=== PATIENT | female | born 1995 | race Caucasian/White ===

== ENCOUNTER → 2017-11-20 14:00 | Observation (INO) ==
[2017-11-20 08:17] LABS: Bilirubin,Urine Negative (Negative); Blood,Urine Small (Negative); Clarity,Urine Clear (Clear); Color,Urine Yellow (Yellow); Glucose,Urine (UA) Normal (Normal); Ketones,Urine Negative (Negative); Leukocyte Esterase,Urine Small (Negative); Nitrite,Urine Negative (Negative); PH,Urine >=9.0 pH Units (5.0-8.0); Protein,Urine 30 mg/dL (Neg-Trace); Urobilinogen,Urine Normal (Normal)
[2017-11-20 08:27] LABS: RBC,Urine 0-3 per hpf (0-3); Squamous Epithelial Cell,Urine Few per lpf (None-Few); WBC,Urine 0-3 per hpf (0-3)
[2017-11-20 08:28] LABS: Amphetamine Screen,Urine Negative ng/mL (Cutoff=1000); Bacteria,Urine Few per hpf (None-Few); Barbiturate Screen,Urine Negative ng/mL (Cutoff=200); Benzodiazepines Screen,Urine Negative ng/mL (Cutoff=200); Cannabinoid Screen,Urine Negative ng/mL (Cutoff = 50); Cocaine Screen,Urine Negative ng/mL (Cutoff= 300); Opiate Screen,Urine Negative ng/mL (Cutoff=300); Phencyclidine Screen,Urine Negative ng/mL (Cutoff=25)
--- NOTE | 2017-11-20 09:04 | OB/GYN History & Physical ---
Date of Encounter: 11/20/17 Time of Encounter: 08:59 Assessment and Plan (1) 29 weeks gestation of Current visit: Yes Status: Acute Patient admitted for observation (2) Vaginal discharge during Current visit: Yes Status: Acute vaginosis panel collected Qualifiers: Trimester: third trimester Qualified Code(s): O26.893 - Other specified related conditions, third trimester; N89.8 - Other specified noninflammatory disorders of vagina (3) contractions Current visit: Yes Status: Acute IV bolus CBC Betamethasone Discussed POC and treatment with Dr. Corea History of Present Illness Chief complaint: contractions and vaginal discharge HPI: Ms. Mora is a 22 year old female at 29w1d presents to labor and delivery via squad with complaints of contractions and caramel colored discharge. Patient reports the contractions started around 7pm yesterday. Patient states she went to bed and they continued and woke her up through the night. Patient states when she got up and went to the bathroom she noticed the caramel colored discharge. Patient reports +FM and urinary frequency. Patient denies any complication with current . Past Med Surg Social Fam HX - Past Medical History Source: patient Medical history: asthma, syncope Additional medical history: hypotension, endometriosis Psychiatric history: no psych history - Past Surgical History Additional surgical history: Laprascopy (Jan 2017), T&A - Social History Smoking Status: Never smoker Smokeless Tobacco Status: No Alcohol use: none Drug use: none Occupational status: unemployed Current living situation: Home - Independent Activity Level: Independent ambulation Recent Out of Country Travel Within the Last 8 Weeks: No Exposure or Possible Exposure to Illness During Travel: No - Family History Mother Hx Family Respiratory Disorders: Yes (Asthma, COPD) Hx Family Cancer: Yes (cervical cancer) Obstetrical History - Pregnancies : 1 Para: 0 Term: 0 : 0 Ab's: 0 Livin Medications and Allergies Albuterol Sulfate [Ventolin Hfa] 18 gm IH Q4-6H PRN 07/06/17 [History] Vits #90/Iron Fum/FA [ Formula Tablet] 1 tab PO DAILY 11/20/17 [History] 3 Allergy/AdvReac Type Severity Reaction Status Date / Time codeine Allergy See Verified 07/06/17 21:32 Comments Penicillins Allergy See Verified 07/06/17 21:31 Comments Sulfa (Sulfonamide Allergy See Verified 07/06/17 21:32 Antibiotics) Comments Review of System OB - Constitutional Constitutional ROS IM: no chills, no fever(s), no headache(s) - Cardiovascular Cardiovascular: no chest pain, no palpitations, no rapid heart rate, no syncope - Respiratory Respiratory: no dyspnea - Gastrointestinal Gastrointestinal: no abdominal pain, no constipation, no diarrhea, no heartburn , no vomiting - Genitourinary Genitourinary: genital pruritis (a few days ago), urinary frequency, vaginal discharge (per IUD), no abnormal vaginal bleeding, no difficulty urinating, no dysuria, no flank pain, no hematuria, no vaginal odor Exam - Constitutional Constitutional: well developed, well nourished, no acute distress, average body habitus - HEENT HEENT: Normocephaly, Mucus Membranes Moist - Neck Neck exam: full ROM, supple - Lungs Respiratory exam: CTAB - Cardiovascular Cardiovascular exam: RRR, +S1, +S2 - Abdomen Abdomen: Present: bowel sounds normal, gravid, non tender - Extremities Extremities exam: full ROM, normal inspection Deep Tendon Reflex Grade: 2+ Normal - Cervix Dilation: 1 Effacement: 70 Station: -1 - Uterus Uterus exam: Present: normal size, normal contour - Anus/Rectum Anus/Rectum: Present: normal perianal skin - Comments Comments: Speculum exam: Moderate amount of beige discharge noted. No new active bleeding seen. Vaginosis panel collected. Cervix appears red and irritated. FHR 135 bpm moderate variability +15x15 accels no decels noted. Contractions 3- 4 min apart. Results Abnormal lab results Urine pH >=9.0 pH Units (5.0-8.0) H 11/20/17 08:00 Urine Protein 30 mg/dL (Neg-Trace) H 11/20/17 08:00 Urine Blood Small (Negative) H 11/20/17 08:00 Ur Leukocyte Esterase Small (Negative) H 11/20/17 08:00 Ur Culture Indicated? YES (NO) A 11/20/17 08:00 All other labs normal. - VTE Reasons for not Prescribing Prophylaxis: Treatment not Indicated - Low risk for VTE
[2017-11-20 09:32] LABS: Basophils % 0.2 %; Eosinophils # 0.1 K/mcL (0.0-0.6); Eosinophils % 0.3 %; Hematocrit 39.5 % (35.3-44.9); Hemoglobin 12.9 g/dL (11.5-15.4); Immature Granulocytes % 0.8 % (0-4); Lymphocytes # 1.6 K/mcL (0.6-4.6); Lymphocytes % 8.7 %; Mean Corpuscular HGB Conc 32.7 g/dL (31.6-35.5); Mean Corpuscular Hemoglobin 27.7 pg (28.0-33.3); Mean Corpuscular Volume 84.9 fL (83.0-100.0); Monocytes # 1.2 K/mcL (0.0-1.3); Monocytes % 6.9 %; Neutrophils # 14.9 K/mcL (1.6-8.9); Platelet Count 225 K/mcL (140-400); Red Blood Count 4.65 M/mcL (3.82-4.97); Red Cell Distribution Width 12.7 % (11.5-14.5); Segmented Neutrophils % 83.1 %
[2017-11-20 10:04] LABS: Trichomonas DNA Not Detected (Not Detect)
[2017-11-20 10:05] LABS: Candida DNA Not Detected (Not Detect); Gardnerella DNA Not Detected (Not Detect)
--- NOTE | 2017-11-20 13:41 | Discharge Summary ---
Date of Encounter: 11/20/17 Time of Encounter: 13:41 - Discharge Diagnosis (1) 29 weeks gestation of Priority: Primary Status: Acute Comments: Patient to follow up in office tomorrow for 2nd betamethasone shot Patient reports no pain at this time. Patient given s/s of labor precautions. (2) Vaginal discharge during Priority: Secondary Status: Acute Comments: vaginosis panel negative Qualifiers: Trimester: third trimester Qualified Code(s): O26.893 - Other specified related conditions, third trimester; N89.8 - Other specified noninflammatory disorders of vagina (3) contractions Priority: Secondary Status: Acute Comments: No cervical change - Discharge Medications Home Medications: Albuterol Sulfate [Ventolin Hfa] 18 gm IH Q4-6H PRN 07/06/17 [History] Vits #90/Iron Fum/FA [ Formula Tablet] 1 tab PO DAILY 11/20/17 [History] Allergies/Adverse Reactions: 3 Allergy/AdvReac Type Severity Reaction Status Date / Time codeine Allergy See Verified 07/06/17 21:32 Comments Penicillins Allergy See Verified 07/06/17 21:31 Comments Sulfa (Sulfonamide Allergy See Verified 07/06/17 21:32 Antibiotics) Comments Data Procedures and tests throughout hospitalization: Laboratory Tests 11/20/17 11/20/17 11/20/17 08:00 08:00 08:56 WBC 18.0 H RBC 4.65 Hgb 12.9 Hct 39.5 MCV 84.9 MCH 27.7 L MCHC 32.7 RDW 12.7 Plt Count 225 MPV 9.0 L Immature Gran % 0.8 Seg Neutrophils % 83.1 Lymphocytes % 8.7 Monocytes % 6.9 Eosinophils % 0.3 Basophils % 0.2 Neutrophils # 14.9 H Lymphocytes # 1.6 Monocytes # 1.2 Eosinophils # 0.1 Basophils # 0.0 Urine Color Yellow Urine Clarity Clear Urine pH >=9.0 H Ur Specific [place] 1.020 Urine Protein 30 H Urine Glucose (UA) Normal Urine Ketones Negative Urine Blood Small H Urine Nitrite Negative Urine Bilirubin Negative Urine Urobilinogen Normal Ur Leukocyte Esterase Small H Urine Microscopic RBC 0-3 Urine Microscopic WBC 0-3 Ur Squamous Epith Cells Few Urine Bacteria Few Ur Culture Indicated? YES A Urine Opiates Screen Negative Ur Barbiturates Screen Negative Ur Phencyclidine Scrn Negative Ur Amphetamines Screen Negative U Benzodiazepines Scrn Negative Urine Cocaine Screen Negative U Marijuana (THC) Screen Negative Ur Drug Screen Interp See Below Jalyn species DNA Gardnerella DNA Probe Trichomonas DNA Probe 11/20/17 09:14 WBC RBC Hgb Hct MCV MCH MCHC RDW Plt Count MPV Immature Gran % Seg Neutrophils % Lymphocytes % Monocytes % Eosinophils % Basophils % Neutrophils # Lymphocytes # Monocytes # Eosinophils # Basophils # Urine Color Urine Clarity Urine pH Ur Specific [place] Urine Protein Urine Glucose (UA) Urine Ketones Urine Blood Urine Nitrite Urine Bilirubin Urine Urobilinogen Ur Leukocyte Esterase Urine Microscopic RBC Urine Microscopic WBC Ur Squamous Epith Cells Urine Bacteria Ur Culture Indicated? Urine Opiates Screen Ur Barbiturates Screen Ur Phencyclidine Scrn Ur Amphetamines Screen U Benzodiazepines Scrn Urine Cocaine Screen U Marijuana (THC) Screen Ur Drug Screen Interp Jalyn species DNA Not Detected Gardnerella DNA Probe Not Detected Trichomonas DNA Probe Not Detected Labs on day of discharge: Labs from last 24 hours 11/20/17 11/20/17 11/20/17 09:14 08:56 08:00 WBC 18.0 H RBC 4.65 Hgb 12.9 Hct 39.5 MCV 84.9 MCH 27.7 L MCHC 32.7 RDW 12.7 Plt Count 225 MPV 9.0 L Immature Gran % 0.8 Seg Neutrophils % 83.1 Lymphocytes % 8.7 Monocytes % 6.9 Eosinophils % 0.3 Basophils % 0.2 Neutrophils # 14.9 H Lymphocytes # 1.6 Monocytes # 1.2 Eosinophils # 0.1 Basophils # 0.0 Urine Color Urine Clarity Urine pH Ur Specific [place] Urine Protein Urine Glucose (UA) Urine Ketones Urine Blood Urine Nitrite Urine Bilirubin Urine Urobilinogen Ur Leukocyte Esterase Urine Microscopic RBC Urine Microscopic WBC Ur Squamous Epith Cells Urine Bacteria Ur Culture Indicated? Urine Opiates Screen Negative Ur Barbiturates Screen Negative Ur Phencyclidine Scrn Negative Ur Amphetamines Screen Negative U Benzodiazepines Scrn Negative Urine Cocaine Screen Negative U Marijuana (THC) Screen Negative Ur Drug Screen Interp See Below Jalyn species DNA Not Detected Gardnerella DNA Probe Not Detected Trichomonas DNA Probe Not Detected 11/20/17 08:00 WBC RBC Hgb Hct MCV MCH MCHC RDW Plt Count MPV Immature Gran % Seg Neutrophils % Lymphocytes % Monocytes % Eosinophils % Basophils % Neutrophils # Lymphocytes # Monocytes # Eosinophils # Basophils # Urine Color Yellow Urine Clarity Clear Urine pH >=9.0 H Ur Specific [place] 1.020 Urine Protein 30 H Urine Glucose (UA) Normal Urine Ketones Negative Urine Blood Small H Urine Nitrite Negative Urine Bilirubin Negative Urine Urobilinogen Normal Ur Leukocyte Esterase Small H Urine Microscopic RBC 0-3 Urine Microscopic WBC 0-3 Ur Squamous Epith Cells Few Urine Bacteria Few Ur Culture Indicated? YES A Urine Opiates Screen Ur Barbiturates Screen Ur Phencyclidine Scrn Ur Amphetamines Screen U Benzodiazepines Scrn Urine Cocaine Screen U Marijuana (THC) Screen Ur Drug Screen Interp Jalyn species DNA Gardnerella DNA Probe Trichomonas DNA Probe Date of admission: 11/20/17 07:45 Primary care physician: Aida Burns CNP Discharging clinician: Chayo Logan Anticipated date of discharge: 11/20/17 - Patient Status Disposition: Home, Self-Care Condition: Good Functional capacity at discharge: independent ambulation - Discharge Instructions Follow Up With: Aida Burns CNP [Primary Care Provider] - Kai Jamison MD [Partnered Physician] - - Diet and Activity Activity: increase activity as tolerated Diet: regular diet 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 Occasional contraction noted. Cat. 1 tracing SVE: /-2 - VTE Reasons for not Prescribing Prophylaxis: Treatment not Indicated - Low risk for VTE
[~2017-11-20 14:00] MED LIST: Betamethasone Acet/SodPhos 6 MG/ML MDV IM SCH; Ringers Solution, Lactated 1,000 ML ONE; Terbutaline 1 MG/ML VIAL SQ ONE
== END | disposition home or self-care (01) ==
LOC: 1NENULAB
PROVIDERS: ADMIT Advanced Practice Midwife; ATTEND Advanced Practice Midwife

== ENCOUNTER → 2017-11-20 22:05 | Observation (INO) ==
--- NOTE | 2017-11-20 21:34 | OB/GYN History & Physical ---
Date of Encounter: 11/20/17 Time of Encounter: 21:30 Assessment and Plan (1) premature rupture of membranes Current visit: Yes Status: Acute Patient grossly ruptured Discussed assessment with Dr. Corea: Plan to transfer to [facility] Dr. Segura accepted transfer Clindamycin, zithromax and 4 gram dose of Magnesium sulfate ordered Qualifiers: PROM onset of labor timing: unspecified duration between rupture of membranes and onset of labor Qualified Code(s): O42.919 - premature rupture of membranes, unspecified as to length of time between rupture and onset of labor, unspecified trimester (2) 29 weeks gestation of Current visit: No Status: Acute admitted for observation History of Present Illness Chief complaint: LOF and contractions HPI: Ms. Mora is a 22 year old female at 29w1d presents to labor and delivery via squad for contractions and leaking. Patient was was seen in labor and delivery earlier today was given Breathine, and betamethasone at 1000. Patient was 1-.5/70/-1. Patient states she felt better for awhile and then around 1900 contractions returned and while waiting on the squad she felt a small gush of fluid. Past Med Surg Social Fam HX - Past Medical History Source: patient Medical history: asthma, syncope Additional medical history: hypotension, endometriosis Psychiatric history: anxiety - Past Surgical History Additional surgical history: Laprascopy (Jan 2017), T&A - Social History Smoking Status: Never smoker Smokeless Tobacco Status: No Alcohol use: none Drug use: none - Family History Mother Living Status: Still Living Hx Family Respiratory Disorders: Yes (asthma) Hx Family Cancer: No Hx Family GI Disorders: No Hx Family Genitourinary Disorders: No Hx Family Endocrine Disorder: No Hx Family Musculoskeletal Disorders: No Hx Family Neuromuscular Disorders: No Hx Family Neurologic Disorders: No Hx Family HEENT Disorders: No Hx Family Autoimmune Disorders: No Hx Family Reproductive Disorders: Yes (cervical cancer) Hx Family Psychosocial Disorders: No Hx Family Medical Disorders: No Obstetrical History - Pregnancies : 1 Para: 0 Term: 0 : 0 Ab's: 0 Livin Medications and Allergies Albuterol Sulfate [Ventolin Hfa] 18 gm IH Q4-6H PRN 07/06/17 [History] Vits #90/Iron Fum/FA [ Formula Tablet] 1 tab PO DAILY 11/20/17 [History] 3 Allergy/AdvReac Type Severity Reaction Status Date / Time codeine Allergy See Verified 07/06/17 21:32 Comments Penicillins Allergy See Verified 07/06/17 21:31 Comments Sulfa (Sulfonamide Allergy See Verified 07/06/17 21:32 Antibiotics) Comments Review of System OB - Constitutional Constitutional ROS IM: no chills, no fever(s), no headache(s) - Cardiovascular Cardiovascular: no chest pain, no edema, no palpitations, no pedal edema - Respiratory Respiratory: no cough, no dyspnea - Gastrointestinal Gastrointestinal: no abdominal pain, no cramping, no diarrhea, no heartburn, no nausea, no vomiting - Genitourinary Genitourinary: vaginal discharge (per hpi), no difficulty urinating, no dysuria , no flank pain Exam - Constitutional Constitutional: well developed, well nourished, no acute distress, average body habitus - HEENT HEENT: Normocephaly, Mucus Membranes Moist - Neck Neck exam: full ROM, supple - Lungs Respiratory exam: CTAB - Cardiovascular Cardiovascular exam: RRR, +S1, +S2 - Abdomen Abdomen: Present: bowel sounds normal, gravid, non tender - Extremities Extremities exam: full ROM, normal capillary refill, normal inspection Deep Tendon Reflex Grade: 2+ Normal - Cervix Dilation: 2 Effacement: 100 Station: -1 - Uterus Uterus exam: Present: normal size, normal contour - Anus/Rectum Anus/Rectum: Present: normal perianal skin - Comments Comments: Speculum exam: +Pooling, + Nitrazine and + FERN 2/100/1 FHR 135 bpm moderate variability +15x15 accels no decels noted at this time, contractions 5-6 min apart Results All other labs normal. - VTE Reasons for not Prescribing Prophylaxis: Treatment not Indicated - Low risk for VTE
[2017-11-20 21:40] LABS: Basophils % 0.1 %; Hematocrit 39.5 % (35.3-44.9); Hemoglobin 13.3 g/dL (11.5-15.4); Immature Granulocytes % 1.3 % (0-4); Lymphocytes # 1.5 K/mcL (0.6-4.6); Lymphocytes % 6.4 %; Mean Corpuscular HGB Conc 33.7 g/dL (31.6-35.5); Mean Corpuscular Hemoglobin 28.4 pg (28.0-33.3); Mean Corpuscular Volume 84.4 fL (83.0-100.0); Mean Platelet Volume 8.9 fL (9.4-12.4); Monocytes % 4.2 %; Neutrophils # 20.9 K/mcL (1.6-8.9); Platelet Count 238 K/mcL (140-400); Red Blood Count 4.68 M/mcL (3.82-4.97)
--- NOTE | 2017-11-20 21:50 | Event Note ---
Date of Encounter: 11/20/17 Time of Encounter: 21:48 Transport here to take patient to [facility] FHR 130 bpm moderate variability +15x15 accels no decels noted. Contractions 5- 6 min apart.
--- NOTE | 2017-11-20 21:57 | Discharge Summary ---
Date of Encounter: 11/20/17 Time of Encounter: 21:58 - Discharge Diagnosis (1) premature rupture of membranes Priority: Primary Status: Acute Qualifiers: PROM onset of labor timing: unspecified duration between rupture of membranes and onset of labor Qualified Code(s): O42.919 - premature rupture of membranes, unspecified as to length of time between rupture and onset of labor, unspecified trimester (2) 29 weeks gestation of Priority: Secondary Status: Acute - Discharge Medications Home Medications: Albuterol Sulfate [Ventolin Hfa] 18 gm IH Q4-6H PRN 07/06/17 [History] Vits #90/Iron Fum/FA [ Formula Tablet] 1 tab PO DAILY 11/20/17 [History] Allergies/Adverse Reactions: 3 Allergy/AdvReac Type Severity Reaction Status Date / Time codeine Allergy See Verified 07/06/17 21:32 Comments Penicillins Allergy See Verified 07/06/17 21:31 Comments Sulfa (Sulfonamide Allergy See Verified 07/06/17 21:32 Antibiotics) Comments Data Procedures and tests throughout hospitalization: Laboratory Tests 11/20/17 21:19 WBC 23.7 H RBC 4.68 Hgb 13.3 Hct 39.5 MCV 84.4 MCH 28.4 MCHC 33.7 RDW 13.0 Plt Count 238 MPV 8.9 L Immature Gran % 1.3 Seg Neutrophils % 88.0 Lymphocytes % 6.4 Monocytes % 4.2 Eosinophils % 0.0 Basophils % 0.1 Neutrophils # 20.9 H Lymphocytes # 1.5 Monocytes # 1.0 Eosinophils # 0.0 Basophils # 0.0 Labs on day of discharge: Labs from last 24 hours 11/20/17 21:19 WBC 23.7 H RBC 4.68 Hgb 13.3 Hct 39.5 MCV 84.4 MCH 28.4 MCHC 33.7 RDW 13.0 Plt Count 238 MPV 8.9 L Immature Gran % 1.3 Seg Neutrophils % 88.0 Lymphocytes % 6.4 Monocytes % 4.2 Eosinophils % 0.0 Basophils % 0.1 Neutrophils # 20.9 H Lymphocytes # 1.5 Monocytes # 1.0 Eosinophils # 0.0 Basophils # 0.0 Date of admission: 11/20/17 21:00 Discharging clinician: Chayo Logan Anticipated date of discharge: 10/03/18 - Patient Status Disposition: Transfer Critical Access Hosp Condition: Good Functional capacity at discharge: independent ambulation - Discharge Instructions Follow Up With: Kai Jamison MD [Partnered Physician] - - Diet and Activity Activity: increase activity as tolerated Diet: regular diet 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
[~2017-11-20 22:05] MED LIST changes: +Azithromycin 500 MG in D5% in Water 250 ML IVPB ONE; -Betamethasone Acet/SodPhos 6 MG/ML MDV IM SCH; +Clindamycin 900 MG/50 ML 900 MG/50 ML IV.SOLN IVPB ONE; +Ringers Solution, Lactated 1,000 ML IVC SCH; -Terbutaline 1 MG/ML VIAL SQ ONE
== END | disposition critical access hospital (66) ==
LOC: 1NENULAB
PROVIDERS: ADMIT Advanced Practice Midwife; ATTEND Advanced Practice Midwife

== ENCOUNTER 2020-08-21 06:17 | Inpatient (IN) ==
[~2020-08-21 06:17] MED LIST changes: +Azithromycin 500 MG in 0.9 % Sodium Chloride 250 ML IVPB PRN; -Azithromycin 500 MG in D5% in Water 250 ML IVPB ONE; -Clindamycin 900 MG/50 ML 900 MG/50 ML IV.SOLN IVPB ONE; +Famotidine 20 MG/2 ML VIAL IVP PRN; +Lidocaine 1% 20 ML MDV ID PRN; +Metoclopramide 10 MG/2 ML VIAL IVP PRN; +Naloxone 0.4 MG/ML INJ IVP PRN; +Ondansetron 4 MG/2 ML VIAL IVP PRN; -Ringers Solution, Lactated 1,000 ML IVC SCH; -Ringers Solution, Lactated 1,000 ML ONE
[2020-08-21 07:06] LABS: Basophils % 0.3 %; Eosinophils # 0.3 K/mcL (0.0-0.6); Eosinophils % 2.9 %; Hematocrit 38.8 % (35.3-44.9); Hemoglobin 12.8 g/dL (11.5-15.4); Immature Granulocytes % 0.7 % (0-4); Lymphocytes % 22.5 %; Mean Corpuscular Volume 84.9 fL (83.0-100.0); Mean Platelet Volume 9.7 fL (9.4-12.4); Monocytes % 11.4 %; Neutrophils # 5.4 K/mcL (1.6-8.9); Platelet Count 231 K/mcL (140-400); Red Blood Count 4.57 M/mcL (3.82-4.97); Red Cell Distribution Width 15.9 % (11.5-14.5); Segmented Neutrophils % 62.2 %; White Blood Count 8.7 K/mcL (4.3-11.1)
[2020-08-21] MEDS: Ringers Solution, Lactated 1,000 ML IVC SCH ×2 (08:57→10:46)
[2020-08-21] MEDS ORDERED: Oxytocin 20 units/ LR 1000 mL 20 UNIT/1,000 ML BAG IVC SCH ×2 (09:00→13:37)
[2020-08-21] MEDS ORDERED: Naloxone 0.4 MG/ML INJ IVP PRN (09:03)
[2020-08-21] MEDS ORDERED: 0.9 % Sodium Chloride 500 ML IVC PRN (09:03)
[2020-08-21] MEDS ORDERED: Epidural Premix (fent/bupiv) 110 ML EP ONE (09:14)
[2020-08-21] MEDS ORDERED: Epidural Premix (fent/bupiv) 110 ML EP SCH (09:15)
[2020-08-21] MEDS ORDERED: EPHEDrine 50 MG/ML VIAL IVP ONE (11:51)
[2020-08-21] MEDS ORDERED: EPHEDrine 50 MG/ML VIAL ONE (11:57)
[2020-08-21 11:59] LABS: Amphetamine Screen,Urine Negative ng/mL (Cutoff=1000); Barbiturate Screen,Urine Negative ng/mL (Cutoff=200); Benzodiazepines Screen,Urine Negative ng/mL (Cutoff=200); Cannabinoid Screen,Urine Negative ng/mL (Cutoff = 50); Cocaine Screen,Urine Negative ng/mL (Cutoff= 300); Opiate Screen,Urine Negative ng/mL (Cutoff=300); Phencyclidine Screen,Urine Negative ng/mL (Cutoff=25)
[2020-08-21] MEDS ORDERED: Benzocaine/Menthol 56 GM AEROSOL SPRAY TP PRN (13:37)
[2020-08-21] MEDS ORDERED: Lanolin 7 G OINT...G. TP PRN (13:37)
[2020-08-21] MEDS: Acetaminophen 325 MG TABLET PO PRN (14:03)
[2020-08-21] MEDS: Ibuprofen 600 MG TABLET PO PRN (20:02)
[2020-08-22] MEDS: Acetaminophen 325 MG TABLET PO PRN ×2 (00:25→07:40)
[2020-08-22 04:04] LABS: Basophils % 0.3 %; Eosinophils # 0.3 K/mcL (0.0-0.6); Eosinophils % 1.8 %; Hematocrit 34.9 % (35.3-44.9); Hemoglobin 11.5 g/dL (11.5-15.4); Immature Granulocytes % 0.7 % (0-4); Lymphocytes # 2.3 K/mcL (0.6-4.6); Lymphocytes % 15.8 %; Mean Corpuscular Hemoglobin 28.1 pg (28.0-33.3); Mean Corpuscular Volume 85.3 fL (83.0-100.0); Mean Platelet Volume 9.5 fL (9.4-12.4); Monocytes # 1.7 K/mcL (0.0-1.3); Monocytes % 11.7 %; Neutrophils # 10.3 K/mcL (1.6-8.9); Platelet Count 174 K/mcL (140-400); Red Blood Count 4.09 M/mcL (3.82-4.97); Red Cell Distribution Width 15.6 % (11.5-14.5); Segmented Neutrophils % 69.7 %
[2020-08-22 04:06] LABS: White Blood Count 14.8 K/mcL (4.3-11.1)
[2020-08-22 07:44] VITALS: BP 84/45
[2020-08-22] MEDS ORDERED: NON-FORMULARY MEDICATION 1 EACH EACH (Prenatal Vits #90/Iron Fum/Fa [Prenatal Formula Tabl PO SCH (09:00)
[2020-08-22] MEDS ORDERED: Prenatal Vit/FA 1 EACH TABLET PO SCH (09:00)
[2020-08-22] MEDS: Ibuprofen 600 MG TABLET PO PRN (12:55)
== END 2020-08-22 13:55 | disposition home or self-care (01) | DRG 560 ==
LOC: 1NENULAB → 1NENUOBS 15:17
PROVIDERS: ADMIT Registered Nurse; ATTEND Registered Nurse